=== PATIENT | female | born 1970 | race Caucasian/White ===

== ENCOUNTER 2020-01-07 15:58 | Emergency (ER) | payer OTHER, SELFPAY ==
[2020-01-07 16:08] VITALS: BP 103/66; PULSE 92; RESP 18; TEMP 36.6; O2SAT 98
--- NOTE | 2020-01-07 16:29 | ED.SKABFB ---
HPI - Skin/Abscess/Foreign Bdy General Chief complaint: Skin/Abscess/Foreign Body Stated complaint: wasp sting/right foot Time Seen by Provider: 01/07/20 16:30 Source: patient Mode of arrival: ambulatory Limitations: no limitations History of Present Illness HPI narrative: Trudy Still is a 49 yo female with a PMH of chronic pain, anxiety, who comes to express care for bee sting to medial right ankle which occurred 2 hours prior to arrival Related Data Home Medications Medication Instructions Recorded Confirmed cyclobenzaprine 10 mg PO TID 01/07/20 01/07/20 hydrocodone-acetaminophen [Garrison] 1 tablet PO QID 01/07/20 01/07/20 lorazepam [Ativan] 0.5 mg PO BID 01/07/20 01/07/20 Allergies Allergy/AdvReac Type Severity Reaction Status Date / Time azithromycin Allergy Unknown Unknown Verified 12/04/17 08:52 codeine Allergy Unknown Unknown Verified 12/04/17 08:52 latex Allergy Unknown Hives Verified 01/07/20 16:20 PER COCET Allergy Hives Uncoded 01/07/20 16:20 Review of Systems Review of Systems: Narrative: CONSTITUTIONAL: Denies fever, chills, sweats. EYES: Denies visual changes, redness, discharge. ENT: Denies rhinorrhea, congestion, sore throat, otalgia. CARDIOVASCULAR: Denies chest pain, palpitations, edema. RESPIRATORY: Denies dyspnea, wheezing, cough GASTROINTESTINAL: Denies abdominal pain, nausea, vomiting, diarrhea. GENITOURINARY: Denies dysuria, hematuria, abnormal discharge SKIN: Denies rash or itching. Swelling of medial right ankle NEUROLOGIC: Denies numbness, or focal weakness. PSYCHIATRIC: Denies anxiety or depression. [facility] Family History Family History Mother Family history of pancreatic cancer Other No active medical problems Social History Social History Smoking status: Never smoker Second hand tobacco smoke exposure: No Alcohol intake: current Gender identity (if verbalized by the patient): Female Comments At time of signature, I agree with nursing past medical, surgical, social and family history. There is no relevant family history pertinent to the presenting complaint. Exam Narrative: Exam Narrative: GENERAL: This is a well-nourished, well-developed patient, in mild distress. HEAD: normocephalic, atraumatic. EYES: Sclera clear/white. Vision is grossly intact. EARS: External ears normal, auditory canals clear and without drainage, TMs normal without perforation. Hearing grossly intact. NOSE: External nose normal without nasal discharge, nares without redness, no rhinorrhea. THROAT: Mucous membranes moist, posterior pharynx NECK: Neck supple, non-tender CARDIOVASCULAR: Regular rate and rhythm without murmurs, gallops, or rubs. RESPIRATORY: Clear to auscultation. Breath sounds equal bilaterally. No wheezes, rales, or rhonchi. GASTROINTESTINAL: Abdomen soft, non-tender, SKIN: warm, intact with no suspicious lesions or rash, good texture and turgor. NEURO: awake, alert, and oriented to person, place and time. There were no obvious focal neurologic abnormalities. Steady gait EXTREMITIES: Normal range of motion. Right medial ankle swelling and erythema with mild induration around reported wasp sting, no streaking, symptoms localized BACK: Nontender without deformity Course Vital Signs Vital signs: Vital Signs Temperature 97.8 F 01/07/20 16:08 Pulse Rate 92 01/07/20 16:08 Respiratory Rate 18 01/07/20 16:08 Blood Pressure 103/66 01/07/20 16:08 Pulse Oximetry 98 01/07/20 16:08 Temperature 97.8 F 01/07/20 16:08 Pulse Rate 92 01/07/20 16:08 Respiratory Rate 18 01/07/20 16:08 Blood Pressure 103/66 01/07/20 16:08 Pulse Oximetry 98 01/07/20 16:08 MDM - Skin/Abscess/Foreign Bdy Differential Diagnosis Differential diagnosis: Likely allergic reaction to drug, insect bites, contact dermatitis and other Discharge Plan Discharge Clinical
[2020-01-07] MEDS: predniSONE 20 MG TABLET 60 MG PO (16:36)
[2020-01-07] MEDS: diphenhydrAMINE HCl CAP 25 MG CAPSULE PO (16:36)
== END 2020-01-07 16:59 | disposition home or self-care (01) ==
PROVIDERS: Emergency Provider Nurse Practitioner; PCP Family Medicine
DX: T63.461A Toxic effect of venom of wasps, accidental (unintentional), initial encounter (principal); F41.9 Anxiety disorder, unspecified
CPT/HCPCS: 99213; A9270; G0463; J7512

== ENCOUNTER 2020-10-30 18:27 | Emergency (ER) | payer OTHER, SELFPAY ==
--- NOTE | 2020-10-30 18:32 | ED.URI ---
HPI - URI/Sore Throat General Chief Complaint: Upper Respiratory Infection Stated Complaint: sinus infection Time Seen by Provider: 10/30/20 18:32 Source: patient and RN notes reviewed Mode of arrival: ambulatory Limitations: no limitations History of Present Illness HPI Narrative: 50-year-old female presents to the [facility] with complaints of I have a sinus infection .Has had facial swelling to the lower right chin area. Denies fevers. No chest pain or abdominal pain. MD elicited complaint: rhinorrhea and nasal congestion Onset (ago): day(s) (2) Consistency: constant Severity: mild Description of mucous: clear Able to tolerate fluids by mouth: Yes Treatments prior to arrival: none Related Data Allergies Allergy/AdvReac Type Severity Reaction Status Date / Time azithromycin Allergy Unknown Unknown Verified 10/30/20 18:38 codeine Allergy Unknown Unknown Verified 10/30/20 18:38 latex Allergy Unknown Hives Verified 10/30/20 18:38 PER COCET Allergy Mild Hives Uncoded 10/30/20 18:38 Review of Systems Review of Systems: All systems reviewed & are unremarkable except as noted in HPI and below Constitutional: Constitutional: Reports as per HPI Eyes: Eyes: Reports as per HPI, Reports no additional eye complaints, Denies change in vision and Denies photophobia ENT: Reports as per HPI, Denies dysphagia, Denies dizziness, Denies epistaxis, Reports nasal congestion and Denies sore throat Cardiovascular: Cardiovascular: Denies chest pain Respiratory: Respiratory: Reports no additional respiratory complaints, Denies cough, Denies dyspnea and Denies wheezing Gastrointestinal: Gastrointestinal: Reports no additional gastrointestinal complaints, Denies abdominal pain, Denies nausea and Denies vomiting Musculoskeletal: Musculoskeletal: Reports no additional musculoskeletal complaints Integumentary/Breasts: Skin/Breast: Reports system reviewed and no additional complaints, except as docu Neurologic: Reports system reviewed and no additional complaints, except as documented [facility] Past Medical History Medical History Cervical radiculopathy High risk medication use Lumbar spondylosis Sinus congestion Surgical History Surgical History H/O arthroscopic knee surgery (~1988) right knee History of hernia repair Family History Family History Mother Family history of pancreatic cancer Other No active medical problems Social History Social History Smoking status: Never smoker Second hand tobacco smoke exposure: No Alcohol intake: current Gender identity (if verbalized by the patient): Female Comments At the time of my signature, I reviewed and agree with the nursing past medical, surgical, social, and family history. There is no relevant family history pertinent to the patient complaint. Exam Const: General: healthy appearing, no acute distress and alert Nutritional Appearance: well nourished Orientation/consciousness: patient oriented x3 Limitations: no limitations HENMT: Head: normal to inspection Mouth: Yes lip normal, Yes oropharynx normal, Yes moist mucous membranes and Yes malodorous breath Teeth and gingiva: abnormal tooth and associated gingiva (Multiple teeth missing or decayed. ), caries, gingiva abnormal tender, receding and discolored (right anterior lower increased reddness) and poor dentition Throat: posterior oropharynx normal Neck: Neck: normal visual inspection and no lymphadenopathy Chest: Chest palpation & inspection: normal inspection of the chest Resp: Effort & Inspection: no use of accessory muscles Auscultation: clear to auscultation bilaterally, no crackles, no rales, no rhonchi and no wheezes Cardio: Rate: regular rate Rhythm: regular rhythm Skin: General skin exam: normal color Rashes: n
[2020-10-30 18:34] VITALS: BP 122/89; PULSE 96; RESP 16; TEMP 36.2; O2SAT 99
== END 2020-10-30 18:46 | disposition home or self-care (01) ==
PROVIDERS: Emergency Provider Nurse Practitioner
DX: K04.7 Periapical abscess without sinus (principal); M54.12 Radiculopathy, cervical region; M47.816 Spondylosis without myelopathy or radiculopathy, lumbar region
CPT/HCPCS: 99213; G0463

== ENCOUNTER 2024-05-14 01:10 | Day surgery (SDC) | payer OTHER, SELFPAY ==
[2024-05-01 08:51] VITALS: BMI 24.2
[2024-05-14 10:16] VITALS: BP 114/80; PULSE 78; RESP 20; TEMP 36; O2SAT 99; BMI 23.8
--- NOTE | 2024-05-14 10:24 | P.HP_ITS ---
H&P: HPI History of Present Illness Date/Time: 05/14/24 10:24 Chief Complaint: screening for colorectal cancer Narrative: this is a 53-year-old woman who presents for her 1st colonoscopy. She denies any hematochezia or melena. She denies any family history of colon cancer. Review of Systems Review of Systems: All systems reviewed & are unremarkable except as noted in HPI and below Constitutional: Constitutional: Denies chills, Denies fever(s), Denies headache(s) and Denies weight loss Eyes: Eyes: Denies change in vision ENT: Denies dizziness, Denies headache(s), Denies neck mass and Denies throat swelling Cardiovascular: Cardiovascular: Denies chest pain, Denies lightheadedness and Denies dyspnea Respiratory: Respiratory: Denies cough, Denies dyspnea and Denies wheezing Gastrointestinal: Gastrointestinal: Denies abdominal pain, Denies change in bowel habits, Denies nausea and Denies vomiting Genitourinary: Genitourinary: Denies hematuria and Denies dysuria Musculoskeletal: Musculoskeletal: Reports as per HPI Integumentary/Breasts: Skin/Breast: Reports as per HPI Neurologic: Denies dizziness and Denies headache(s) Allergic/Immunologic: Allergic/Immunologic: Denies throat swelling and Denies wheezing PMFSH Past Medical History Medical History Cervical radiculopathy Essential hypertension High risk medication use Lumbar spondylosis Sinus congestion Surgical History Surgical History H/O arthroscopic knee surgery (~1988) right knee History of dental surgery 03/01/23 all teeth were extracted. History of hernia repair Family History Family History Mother Family history of pancreatic cancer Other No active medical problems Social History Social History Smoking packs per day: 0.5 Smoking cigarettes per day: 10.0 Years smoked: 25 Smoking pack-years: 12.50 Smoking status: Current every day smoker Tobacco type: cigarettes Second hand tobacco smoke exposure: No Alcohol intake: current Substance use: current Substance use type: marijuana Lack of Transportation: No Lack of Food: Never True Current Housing: I Have Housing Concerned About Future Housing: No Difficulty Paying Gas/Electric Bills: No Difficulty Paying for Meds: No Currently Unemployed: No Education: High School Diploma/GED Difficulty w/ Childcare or Family Care: No Living arrangements: with family Gender identity (if verbalized by the patient): Female Sexual Orientation (if Verbalized by the Patient): Straight or Heterosexual Spiritual care concerns: No Agree to blood products: Yes Meds Home Medications and Allergies Home Medications Medication Instructions Recorded Confirmed Type cholecalciferol (vitamin D3) 50 50 mcg PO DAILY 03/20/22 05/14/24 History mcg (2,000 unit) capsule fexofenadine 60 mg tablet (Mariel 60 mg PO Q12H 03/04/23 05/14/24 History Allergy) lidocaine 5 % topical patch 1 patch topical DAILY #30 ea 03/04/23 05/14/24 Rx metoprolol tartrate 25 mg tablet 12.5 mg PO BID PRN anxiety #60 tabs 08/21/23 05/14/24 Rx fluticasone propionate 50 1 spray intranasal BID #15.8 mL 11/11/23 05/14/24 Rx mcg/actuation nasal spray,suspension (Allergy Relief (fluticasone)) venlafaxine 37.5 mg 37.5 mg PO DAILY #30 caps 11/29/23 05/14/24 Rx capsule,extended release 24 hr trazodone 100 mg tablet 150 mg PO QHS PRN insomnia #90 tabs 01/06/24 05/14/24 Rx lorazepam 0.5 mg tablet (Ativan) 0.5 mg PO BID PRN anxiety #60 tabs 02/03/24 05/14/24 Rx atorvastatin 10 mg tablet 10 mg PO DAILY #90 tabs 03/04/24 05/14/24 Rx lamotrigine 25 mg tablet 25 mg PO BID 03/04/24 05/14/24 History fenofibrate 150 mg capsule 150 mg PO DAILY #90 caps 03/11/24 05/14/24 Rx levothyroxine 50 mcg tablet 50 mcg PO DAILY #90 tabs 03/12/24 05/14/24 Rx celecoxib 200 mg capsule See Rx Instructions .Route 05/01/24 05/14/24 Rx .COMPLEX #30 caps cyclobenzaprine 10 mg tablet 10 mg PO TID PRN muscle spasm #90 05/01/24 05/14/24 Rx tabs Allergies Allergy/AdvReac Type Severity Reaction Status Date / Time oxycodone [From Percocet] Allergy Mild Hives Verified 05/14/24 10:14 venom-wasp Allergy Mild Unknown Verified 05/01/24 08:46 azithromycin Allergy Unknown Unknown Verified 05/01/24 08:46 codeine Allergy Unknown Unknown Verified 03/04/24 15:02 latex Allergy Unknown Hives Verified 05/01/24 08:46 Vital Signs Vital Signs - 24 hr 05/14/24 10:16 Temperature 96.8 F L Pulse Rate 78 Respiratory Rate 20 Blood Pressure 114/80 Pulse Oximetry 99 Oxygen Delivery Room Air Exam Const: General: no acute distress and alert Orientation/consciousness: patient oriented x3 HENMT: Head: normocephalic and atraumatic Ears: hearing grossly normal bi laterally Face/Nose/Sinus: Normal nares present Mouth: Yes Normal oral and palatal mucosa present Eyes: Periorbital: periorbital findings normal Sclera: sclerae normal EOM: EOMs intact bilaterally Neck: Neck: normal visual inspection, no lymphadenopathy and trachea midline Chest: Chest palpation & inspection: normal inspection of the chest Resp: Effort & Inspection: normal respiratory effort Auscultation: clear to auscultation bilaterally Cardio: Jugular venous distension: no JVD Rate: regular rate Rhythm: regular rhythm Heart sounds: S1 normal heart sound present and S2 normal heart sound present Peripheral pulses: Peripheral pulses 2+ throughout GI: Inspection: normal to inspection GI Palp: Yes Soft to palpation, No Tenderness to palpation present (GI), No Guarding due to palpation present (GI) and No Rebound tenderness present Percussion: Yes normal to percussion Auscultation: normal bowel sounds : General: Yes no CVA tenderness Back/Spine/Pelvis: Back: no CVA tenderness Neuro: General: patient oriented x3, no focal motor deficits and CN's II-XI intact bilaterally Cognition (Neuro): normal cognition Speech: normal speech Motor exam (neuro): 5/5 motor strength present throughout Extrem: General: capillary refill normal and no clubbing, cyanosis or edema Assessment and Plan Assessment and plan (1) Screening for colorectal cancer: Code(s): Z12.11 - Encounter for screening for malignant neoplasm of colon; Z12.12 - Encounter for screening for malignant neoplasm of rectum Status: Acute Assessment and Plan: I have recommended colonoscopy. I have discussed the procedure, risks, benefits, and alternatives. Questions were answered. Patient is agreeable to proceed.
[2024-05-14] MEDS: LACTATED RINGERS 1,000 ML 150 ML IV CONT (10:25)
--- NOTE | 2024-05-14 10:27 | P.PNAN_ITS ---
Anes - Initial Pre Proc Eval Procedure: Operation Date: 05/14/24 11:30 Proposed Procedures p Screening Colonoscopy - Luis Pacheco DO Date/Time: 05/14/24 10:27 Surgeon: Luis Pacheco DO Pre Op Diagnosis: Screening for malignant neoplasm of colon Patient Data Age: 53 Gender: F Height: 1.63 m Weight: 63 kg Last Vital Signs Temp 96.8 F L 05/14/24 10:16 Pulse 78 05/14/24 10:16 Resp 20 05/14/24 10:16 BP 114/80 05/14/24 10:16 Pulse Ox 99 05/14/24 10:16 O2 Del Method Room Air 05/14/24 10:16 Allergies Allergy/AdvReac Type Severity Reaction Status Date / Time oxycodone [From Percocet] Allergy Mild Hives Verified 05/14/24 10:14 venom-wasp Allergy Mild Unknown Verified 05/01/24 08:46 azithromycin Allergy Unknown Unknown Verified 05/01/24 08:46 codeine Allergy Unknown Unknown Verified 03/04/24 15:02 latex Allergy Unknown Hives Verified 05/01/24 08:46 Home Medications Medication Instructions Recorded Confirmed Type cholecalciferol (vitamin D3) 50 50 mcg PO DAILY 03/20/22 05/14/24 History mcg (2,000 unit) capsule fexofenadine 60 mg tablet (Mariel 60 mg PO Q12H 03/04/23 05/14/24 History Allergy) lidocaine 5 % topical patch 1 patch topical DAILY #30 ea 03/04/23 05/14/24 Rx metoprolol tartrate 25 mg tablet 12.5 mg PO BID PRN anxiety #60 tabs 08/21/23 05/14/24 Rx fluticasone propionate 50 1 spray intranasal BID #15.8 mL 11/11/23 05/14/24 Rx mcg/actuation nasal spray,suspension (Allergy Relief (fluticasone)) venlafaxine 37.5 mg 37.5 mg PO DAILY #30 caps 11/29/23 05/14/24 Rx capsule,extended release 24 hr trazodone 100 mg tablet 150 mg PO QHS PRN insomnia #90 tabs 01/06/24 05/14/24 Rx lorazepam 0.5 mg tablet (Ativan) 0.5 mg PO BID PRN anxiety #60 tabs 02/03/24 05/14/24 Rx atorvastatin 10 mg tablet 10 mg PO DAILY #90 tabs 03/04/24 05/14/24 Rx lamotrigine 25 mg tablet 25 mg PO BID 03/04/24 05/14/24 History fenofibrate 150 mg capsule 150 mg PO DAILY #90 caps 03/11/24 05/14/24 Rx levothyroxine 50 mcg tablet 50 mcg PO DAILY #90 tabs 03/12/24 05/14/24 Rx celecoxib 200 mg capsule See Rx Instructions .Route 05/01/24 05/14/24 Rx .COMPLEX #30 caps cyclobenzaprine 10 mg tablet 10 mg PO TID PRN muscle spasm #90 05/01/24 05/14/24 Rx tabs Patient hx anesthesia problems: none Family hx anesthesia problems: none Results Review: All pre-operative results and documents have been reviewed as part of the pre- operative evaluation. [facility] Past Medical History Medical History Cervical radiculopathy Essential hypertension High risk medication use Lumbar spondylosis Sinus congestion Surgical History Surgical History H/O arthroscopic knee surgery (~1988) right knee History of dental surgery 03/01/23 all teeth were extracted. History of hernia repair Family History Family History Mother Family history of pancreatic cancer Other No active medical problems Social History Social History Smoking packs per day: 0.5 Smoking cigarettes per day: 10.0 Years smoked: 25 Smoking pack-years: 12.50 Smoking status: Current every day smoker Tobacco type: cigarettes Second hand tobacco smoke exposure: No Alcohol intake: current Substance use: current Substance use type: marijuana Lack of Transportation: No Lack of Food: Never True Current Housing: I Have Housing Concerned About Future Housing: No Difficulty Paying Gas/Electric Bills: No Difficulty Paying for Meds: No Currently Unemployed: No Education: High School Diploma/GED Difficulty w/ Childcare or Family Care: No Living arrangements: with family Gender identity (if verbalized by the patient): Female Sexual Orientation (if Verbalized by the Patient): Straight or Heterosexual Spiritual care concerns: No Agree to blood products: Yes Anes - Eval Final PreProcedure Day of Procedure 05/14/24 10:27 Patient weight: normal Heart: regular rate and rhythm Lungs: clear to auscultation Airway: Mallampati scale and special considerations (Edentulous. ) Neurological: alert and oriented Last oral intake: >/= 8 hours ASA classification: III Emergent: no Anesthetic plan: proceed Anesthesia type and monitoring: general GIVS and standard monitoring Results Review: All pre-operative results and documents have been reviewed as part of the pre- operative evaluation. HTN, hyperlipidemia, smoker 1/2 ppd, bipolar disorder. Informed Consent: The patient's anesthetic plan and its attendant risks and benefits were discussed with the patient/family/POA. Questions were solicited and answers provided to the satisfaction of the patient/family/POA.
[2024-05-14 10:58] VITALS: BP 103/59; PULSE 70; RESP 14; O2SAT 100
[2024-05-14 11:08] VITALS: BP 117/81; PULSE 75; RESP 14; O2SAT 100
[2024-05-14 11:18] VITALS: BP 122/79; PULSE 72; RESP 20; O2SAT 100
== END 2024-05-14 11:26 | disposition home or self-care (01) ==
PROVIDERS: PCP Family Medicine; Visit Provider Surgery
PROC: 0DJD8ZZ Inspection of Lower Intestinal Tract, Via Natural or Artificial Opening Endoscopic (ICD-10-PCS; CPT 45378; principal; 2024-05-14 11:30)
DX: Z12.11 Encounter for screening for malignant neoplasm of colon (principal); D12.5 Benign neoplasm of sigmoid colon; I10 Essential (primary) hypertension; M54.12 Radiculopathy, cervical region; M43.06 Spondylolysis, lumbar region; F17.210 Nicotine dependence, cigarettes, uncomplicated; F12.90 Cannabis use, unspecified, uncomplicated; Z79.899 Other long term (current) drug therapy; Z98.890 Other specified postprocedural states; Z80.0 Family history of malignant neoplasm of digestive organs
CPT/HCPCS: 45385; 88305; J2003; J2704; J7120